=== PATIENT | male | born 1965 | race African-American/Black ===

== ENCOUNTER 2017-05-14 05:48 | Inpatient (IN) | payer OTHER ==
[~2017-05-14] VITALS: Ht 190.5 cm; Wt 90.7 kg
[2017-05-14] VITALS (18 sets, daily range): BP systolic 121–149; BP diastolic 72–97
[2017-05-14] MEDS ORDERED: ceFAZolin sod 2 GM in D5W 110 ML IVPB ONE (07:00)
[2017-05-14] MEDS ORDERED: NKM (07:06)
[2017-05-14] MEDS ORDERED: Bacitracin Oint 15gm Tube TOPIC ONE (07:07)
[2017-05-14] MEDS ORDERED: Thrombin 5000 units TOPIC ONE (07:07)
[2017-05-14] MEDS ORDERED: Gelfoam Absorbable 1gm powder pkt TOPIC ONE ×2 (07:08→11:06)
[2017-05-14] MEDS ORDERED: Bupivacaine 0.5% Inj 30 ml vial INJ ONE (07:08)
[2017-05-14] MEDS ORDERED: Thrombin 5000 units spray kit TOPIC ONE ×2 (07:08→11:05)
[2017-05-14] MEDS ORDERED: Vancomycin 1gm inj IVPB ONE (07:08)
[2017-05-14] MEDS ORDERED: Bacitracin 50000 Units Vial ONE (07:09)
--- NOTE | 2017-05-14 08:43 | Pre-Procedure Note/Attestation ---
Pre-Procedure Note/Attestation Complete Prior to Procedure Procedure Narrative: c2-7 laminectomy Indications for Procedure Pre-Operative Diagnosis: c2-7 stenosis with myelopathy Attestation I attest that I discussed the nature of the procedure; its benefits; risks and complications; and alternatives (and the risks and benefits of such alternatives ), prior to the procedure, with the patient (or the patient's legal sales representative girls' apparel). I attest that, if there was a reasonable possibility of needing a blood transfusion, the patient (or the patient's legal sales representative girls' apparel) was given the [facility] standardized written summary, pursuant to the Ivan Adwoa Blood Safety Act ([place] Health and Safety Code # 1645, as amended). I attest that I re-evaluated the patient just prior to the surgery and that there has been no change in the patient's H&P, except as documented below: JOHN EDUARDO May 14, 2017 08:43
[2017-05-14] MEDS ORDERED: Zemuron 50mg/5ml Inj IV ONE (08:45)
[2017-05-14] MEDS ORDERED: fentaNYL 100 mcg/2 mL IV ONE (08:45)
[2017-05-14] MEDS ORDERED: Milk of Magnesia 30ml Ud ORAL PRN (08:45)
[2017-05-14] MEDS ORDERED: NS Irrig 1000ml ONE (08:45)
[2017-05-14] MEDS ORDERED: Metoclopramide 10mg/2ml Inj IVP PRN (08:45)
[2017-05-14] MEDS ORDERED: Lidocaine 1% MPF 10mg/ml 5ml ONE (08:45)
[2017-05-14] MEDS ORDERED: LR 1000ml ONE (08:45)
[2017-05-14] MEDS ORDERED: Naloxone 0.4mg/ml Inj ONE (08:45)
[2017-05-14] MEDS ORDERED: Midazolam 2mg/2ml Inj ONE (08:45)
[2017-05-14] MEDS ORDERED: Sodium Chloride 10ml vial INJ ONE (08:45)
[2017-05-14] MEDS ORDERED: Dexamethasone 4mg/ml vial ONE (08:45)
[2017-05-14] MEDS ORDERED: Sterile Water Irrig 1000ml IRRIG ONE (08:45)
[2017-05-14] MEDS ORDERED: Propofol 1,000mg/ 100ml btl IV ONE (08:45)
--- NOTE | 2017-05-14 08:45 | Brief Operative Note ---
Immediate Post Operative Note Operative Note Pre-op Diagnosis: c2-7 stenosis with myelopathy Procedure: c3-7 laminectomy, partial inf pole c2 laminectomy Post-op Diagnosis: same as pre-op Findings: consistent w/pre-op dx studies Surgeon: pj Software Installer: winifred keys Anesthesiologist: rajendra Anesthesia: general Specimen: none Complications: none Condition: stable Fluids: 2L Estimated Blood Loss: volume - 150 Drains: hemovac Implant(s) used?: JOHN Garcia May 14, 2017 08:45
[2017-05-14] MEDS ORDERED: Lidocaine 1% 10mg/ml/Epi 0.005mg/ml 30ml vial INJ ONE (10:03)
[2017-05-14] MEDS ORDERED: LR 1000ml 1,000 ML IVLG SCH (10:39)
[2017-05-14] MEDS ORDERED: LR 1000ml 1,000 ML IV SCH (10:45)
[2017-05-14] MEDS ORDERED: DiphenhydrAMINE 50mg/ml Inj IVP PRN (10:45)
[2017-05-14] MEDS ORDERED: Hydromorphone 0.5mg/0.5ml inj IVP PRN (10:45)
[2017-05-14] MEDS ORDERED: LORazepam Inj 2mg/ml 1ml IV PRN (10:45)
[2017-05-14] MEDS ORDERED: Meperidine 50mg/ml Inj(FOR RIGORS ONLY) IVP ONE (10:45)
--- NOTE | 2017-05-14 10:46 | Anethesia Preoperative Eval ---
Anesthesia Pre-op PMH/ROS General Date of Evaluation: May 14, 2017 Time of Evaluation: 08:20 Anesthesiologist: Rosamaria ASA Score: ASA 2 Mallampati Score Class I : Soft palate, uvula, fauces, pillars visible Class II: Soft palate, uvula, fauces visible Class III: Soft palate, base of uvula visible Class IV: Only hard plate visible Mallampati Classification: Class II Surgeon: Patrizia Diagnosis: Cervical spinal stenosis Surgical Procedure: Cervical laminectomy and decompression C3-C7 Social History: smoking - Former, alcohol use - Former Family History: no anesthesia problems Allergies: Coded Allergies: No Known Allergies (Unverified , 05/13/17) Medications: see eMAR Past Medical History Cardiovascular: Reports: HTN, Denies: CAD, [place], valve dz, arrhythmia, other Pulmonary: Denies: asthma, COPD, ODILIA, other Gastrointestinal/Genitourinary: Denies: GERD, CRI, ESRD, other Neurologic/Psychiatric: Denies: dementia, CVA, depression/anxiety, TIA, other Endocrine: Denies: DM, hypothyroidism, steroids, other HEENT: Denies: cataract (L), cataract (R), glaucoma, [place] (L), [place] (R), other Hematology/Immune: Reports: DVT - PE Musculoskeletal/Integumentary: Denies: OA, RA, DJD, DDD, edema, other PMH Narrative: HTN (border line, not currently on meds), PE in 2014 PSxH Narrative: Left shoulder surgery Anesthesia Pre-op Phys. Exam Physician Exam Last Vital Signs Date Time Temp Pulse Resp B/P (MAP) Pulse Ox O2 Delivery O2 Flow Rate FiO2 05/14/17 06:39 98.1 69 18 127/84 99 Room Air Constitutional: NAD Neurologic: CN 2-12 intact Cardiovascular: RRR, no M/R/G Respiratory: CTA Gastrointestinal: S/NT/ND Airway Exam Mallampati Score: Class II MO: full ROM: full Teeth: intact Anesthesia Pre-op A/P Labs WNL Studies Pre-op Studies: EKG - NSR Risk Assessment & Plan Assessment: Borderline hypertensive male with h/0 PE in 2014 Plan: GETA, SedLine monitor Status Change Before Surgery: No Pre-Antibiotics Drug: Ancef Given Within 1 Hr of Incision: Yes Time Given: 09:00 MELISSA PASTOR M.D. May 14, 2017 10:46
--- NOTE | 2017-05-14 10:48 | Immediate Post-Op Evaluation ---
Immediate Post-Op Evalulation Immediate Post-Op Evalulation Procedure: Cervical laminectomy and decompression C3-C7 Date of Evaluation: May 14, 2017 Time of Evaluation: 12:40 IV Fluids: 2000 Estimated Blood Loss: 150 Urinary Output: 100 Blood Pressure Systolic: 141 Blood Pressure Diastolic: 93 Pulse Rate: 94 Respiratory Rate: 13 O2 Sat by Pulse Oximetry: 100 Temperature (Fahrenheit): 97.7 Pain Score (1-10): 0 Nausea: No Vomiting: No Complications No complication Patient Status: reacts, patent, extubated, none Hydration Status: adequate Drug: Ancef Given Within 1 Hr of Incision: Yes Time Given: 09:00 MELISSA PASTOR M.D. May 14, 2017 10:47
[2017-05-14] MEDS ORDERED: Dronabinol 2.5mg Cap ORAL SCH ×2 (14:00)
[2017-05-14] MEDS: PCA HYDROmorphone 30mg/30ml Syr IV PRN (14:25)
[2017-05-14] MEDS ORDERED: Rate Change PCA 1 Each MISC PRN (14:30)
[2017-05-14] MEDS ORDERED: HYDROmorphone 1mg/ml Carpuject SUBQ PRN (14:30)
[2017-05-14] MEDS ORDERED: Naloxone 0.4mg/ml Inj IVP PRN (15:45)
[2017-05-14] MEDS ORDERED: PCA Education Pamphlet MISC ONE (16:00)
--- NOTE | 2017-05-14 16:00 | Operative Note - Dictated ---
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 OPERATION PERFORMED: 1. Inferior hemilaminectomy bilaterally, C2. 2. Complete laminectomy, C3. 3. Complete laminectomy, C4. 4. Complete laminectomy, C5. 5. Complete laminectomy, C6. 6. Superior one-half laminectomy, C7. 7. Use of operating microscope. 8. Neurodiagnostic monitoring. 9. Use of fluoroscopy for localization purposes. ESTIMATED BLOOD LOSS: 150 mL. COMPLICATIONS: None. FLUIDS: 2000 mL. SURGEON: Dao Acharya M.D. MUSIC LEADER: Umer Barroso PA-C. ANESTHESIOLOGIST: Dr. Blank. ANESTHESIA TYPE: General endotracheal anesthesia. INDICATIONS: The patient is a very pleasant gentleman with severe spondylitic myelopathy with weakness in both upper and lower extremities as well as balance change. Surgical intervention was recommended due to the notable clinical findings, MRI findings, and already evidence of cord signal change. The patient elected to undergo decompression. I did discuss with him the option of multilevel fusion, however, due to the fact that the patient already had fairly advanced discogenic collapse as well as fairly significant spondylosis and a normal lordosis, a laminectomy was deemed to be appropriate in this situation. RISK NOTE: The patient was explained detail risks and benefits of surgery to include but not be limited to those of bleeding, infection, damage to nerves or vessels or tendons, anesthetic risk, allergic reaction, aspiration, and possibly . The patient understood and wished to proceed. OPERATIVE PROCEDURE IN DETAIL: The patient was taken to the operative suite. After general endotracheal anesthesia was obtained, Begum catheter was placed. Baseline neurodiagnostic monitoring was performed demonstrating significant diminution of neural function in the upper and lower extremities. At this point, Edmondson pins were inserted under sterile fashion. The patient was turned prone onto a radiolucent table and the Edmondson was firmly attached to the table. All bony prominences were well padded. The back of the neck was then prepped and draped in usual sterile fashion. Midline incision was carried out from C2 through T1. Subperiosteal dissection was carried out bilaterally. Fluoroscopically, the levels were then localized. At this point, an entry portal was made at C6, top of C7, to apply the B1 footplate, however, after having put this into place and noting the size, I was concerned that there was such severe stenosis that this would potentially cause further cord damage. For that reason, a [id number] laminectomy was elected to be performed. At this point, a trough was drilled out on the left side bicortically from C6, C5, C4, C3, and the inferior portion of C2. This was then repeated on the contralateral side. The interspinous ligament between C2-C3 and C6-C7 was then amputated with Bovie and large pokers were placed onto the spinous processes, which allowed for elevation of the lamina. All attachments of the flavum were then cut back. At this point, bilateral hemilaminectomy of the superior portion of C7 was performed until no further cord compression was noted. This was performed using standard technique by drilling and thinning the lamina and applying a #2 or #3 Kerrison rongeur. This was then repeated at C2. Please note that C2 was far more compressed with a significant buckling phenomenon of the ligamentum flavum which was removed in its entirety. Once satisfied with cord decompression from the bottom one-half of C2 all the way to the top half of C7, decision was made to close. Meticulous hemostasis was performed. Copious irrigation was performed. FloSeal was applied. The patient did receive 500 mg of vancomycin powder placed deep to the fascia plus an additional 500 mg suprafascially. The fascia was repaired using #1 Vicryl, subcutaneous closure using 2-0 Vicryl and running 4-0 PDS. Dermabond was applied. Sterile dressing was applied. At this time, the patient was turned onto his back. Edmondson pins were removed and we were awaiting extubation. Dao Acharya M.D. DR: Ghanshyam JOB#: [id number] CC: ASTER
[2017-05-14] MEDS: D5 1/2NS 1,000 ML IV SCH (16:48)
[2017-05-14] MEDS: ceFAZolin sod 1 GM in D5W 55 ML IV SCH (16:49)
[2017-05-14] MEDS: Docusate 100mg cap ORAL SCH (18:43)
[2017-05-14] MEDS: Pericolace tab ORAL SCH (18:43)
[2017-05-14] MEDS: PCA shift volume MISC SCH (19:10)
[2017-05-14] MEDS: Dronabinol 2.5mg Cap ORAL SCH (20:38)
[2017-05-15 00:13] VITALS: BP 117/73
[2017-05-15] MEDS: oxyCODONE 5mg IR tab ORAL PRN (00:24)
[2017-05-15] MEDS: D5 1/2NS 1,000 ML IV SCH ×3 (00:25→20:40)
[2017-05-15] MEDS: ceFAZolin sod 1 GM in D5W 55 ML IV SCH ×2 (00:25→08:59)
--- NOTE | 2017-05-15 00:30 | Consultation ---
DATE OF CONSULTATION: 05/14/2017 ACUTE PAIN CONSULT CONSULTING PHYSICIAN: Fernando Chapin M.D. REFERRING PHYSICIAN: Dao Acharya M.D. HISTORY OF PRESENT ILLNESS: Dr. Dao Acharya, Thank you kindly for consulting me to evaluate and render an opinion as to how to proceed in the management of the patient's acute postoperative multiple level posterior cervical spine surgery pain. The patient is a 52-year-old gentleman, who injured his cervical spine in a work-related injury. Today, he underwent multiple level posterior cervical spine surgery and he consulted me to help with this patient's pain control postoperatively. He complained of significant discomfort after the multilevel surgery. I saw the patient at the bedside. I discussed the case with the day nurse, Torri TITUS on the orthopedic floor and also with the recovery room nurse. I discussed the case with yourself, Dr. Acharya, and devised the following analgesic plan. I spent over 75 minutes in consultation with an additional 30 minutes in medical record review. I reviewed multiple records from today, date of surgery at [facility], 05/14/2017 including consent for surgical treatment, consent for anesthesia, consent for blood products, medication administration record, medication reconciliation order form, HOT CAR CHARGER order sheet, HOT CAR CHARGER analgesia flow sheet, PACU records, PACU orders, intraoperative anesthesia record, pre and post-anesthesia evaluation record, postoperative spine surgical orders, and postoperative surgery report by Dr. Acharya. Surgical invasive procedure check list, preoperative nurse plan of care, guidelines for prophylactic antibiotics, guidelines for DVT prophylaxis. Further record review includes utilization review and surgical authorization by [facility] April 2017 authorizing surgery as certified. The record review included preoperative History and Physical by Inderjit Gibbs M.D. of 05/01/2017 along with diagnostic testing. PAST MEDICAL HISTORY: 1. Acute postoperative cervical spine pain, status post multiple level posterior cervical spine surgery by Dr. Dao Acharya in May 2017. 2. Work-related injury. 3. Active marijuana usage. 4. History of pulmonary embolism in November 2013. PAST SURGICAL HISTORY: Left shoulder surgery in 2014. REVIEW OF SYSTEMS: Per Dr. Gibbs. MEDICATIONS AT HOME: None. ALLERGIES: No known drug allergies. SOCIAL HISTORY: The patient lives at home with his and daughter in [place], [place]. The patient admits to using marijuana at least every other day. The patient quit alcohol usage 5 years ago. PHYSICAL EXAMINATION: VITAL SIGNS: Age 52, height 6 feet 3 inches, weight 197 pounds, body mass index 25. Afebrile, blood pressure 134/84, pulse 81, respirations 19, and oxygen saturation 96% on room air. HEENT: Normocephalic and atraumatic. Extraocular muscles are intact. Pupils are equal, round, and accommodative. NECK: Posterior dressing clean and dry with Hemovac drain holding suction. Significant pain with range of motion. CHEST: Clear to auscultation. HEART: Regular rate and rhythm. ABDOMEN: Soft. GENITOURINARY: Deferred. The patient is voiding urine well after Begum catheter was discontinued earlier. EXTREMITIES: Moving all extremities x4. Grossly movement of all extremities is within normal limits. NEUROLOGIC: Detailed neurologic exam per Dr. Acharya. DIAGNOSTIC TESTING: Shows a 12-lead EKG, normal sinus rhythm in April 2017. LABORATORY STUDIES: From 05/08/2017 show glucose 99, BUN 15, creatinine 1.2, sodium 141, potassium 4.0, chloride 108, bicarbonate 22, calcium 7.2, total protein 7.6, albumin 4.9, total bilirubin 0.8, alkaline phosphatase 62, AST 17, and ALT 23. PTT 28 and INR 1.0. White count is 5, hematocrit 48, and platelets 135,000. Urinalysis is negative. IMPRESSION: 1. Acute postoperative cervical spine pain, status post multiple level posterior cervical spine surgery by Dr. Dao Acharya in May 2017. 2. Work-related injury. 3. Active marijuana usage. 4. History of pulmonary embolism in November 2013. TREATMENT AND RECOMMENDATIONS: I spoke with the hospital pharmacist and devised the following analgesic plan. I started the patient on Dilaudid HOT CAR CHARGER with 0.2 mg demand dose at 10-minute lockout and 4 mg 4-hour limit. There will be no underlying basal rate or continuous rate to reduce the risk of complications. The patient does use marijuana frequently. I have placed him on q.12 h. dosing of Marinol 2.5 mg at 9 a.m. and 9 p.m. I believe this should hopefully reduce his opioid requirements and make it easier to wean him off of the HOT CAR CHARGER unit. I have added a breakthrough dose of Dilaudid 1 mg subcutaneously every three hours p.r.n. for severe breakthrough pain. I have ordered oxycodone instant release 10 mg every three hours p.r.n. for moderate breakthrough pain. The patient believes he has tolerated oxycodone in the past without any adverse side effects. I have empirically placed the patient on Protonix 40 mg nightly for GI ulcer prophylaxis and I have also added p.r.n. dose of Maalox 30 mL q.6 h. in case of any GERD symptom exacerbation. I have ordered Zofran 4 mg intravenously every 4 hours in case of any nausea symptoms. I have ordered Benadryl 25 mg orally q.6 h. in case of any itching complaints. The patient has been placed on Colace mg b.i.d. as a stool softener to help with bowel regularity. I have also ordered p.r.n. dose of milk of magnesia 30 mL q.6 h. daily in case of any constipation issues. With the patient's smoking history, I have ordered incentive spirometer to encourage good pulmonary toilet. The patient has a history of pulmonary embolism in the past. He will be maintained on sequential compression and pneumatic devices at all times when in bed. Fernando Chapin M.D. DR: Renetta JOB#: [id number] CC: ASTER
[2017-05-15 04:30] VITALS: BP 110/68
[2017-05-15] MEDS: PCA shift volume MISC SCH ×2 (07:04→19:07)
[2017-05-15 08:00] VITALS: BP 124/81
[2017-05-15] MEDS: Docusate 100mg cap ORAL SCH ×2 (08:58→17:04)
[2017-05-15] MEDS: Pericolace tab ORAL SCH ×2 (08:58→17:04)
[2017-05-15] MEDS: Dronabinol 2.5mg Cap ORAL SCH ×2 (08:58→20:39)
--- NOTE | 2017-05-15 10:36 | 48 Hour Post Anesthesia Eval ---
Post Anesthesia Evaluation Procedure: Cervical laminectomy and decompression C3-C7 Date of Evaluation: May 15, 2017 Time of Evaluation: 06:30 Blood Pressure Systolic: 110 0: 68 Pulse Rate: 64 Respiratory Rate: 18 Temperature (Fahrenheit): 97.9 O2 Sat by Pulse Oximetry: 98 Airway: patent Nausea: No Vomiting: No Pain Intensity: 2 Hydration Status: adequate Cardiopulmonary Status: at baseline Mental Status/LOC: patient returned to baseline Post-Anesthesia Complications: 0 Follow-up care needed: N/A - further care as per primary team LOU LOWRY M.D. May 15, 2017 10:36
[2017-05-15 12:00] VITALS: BP 114/74
--- NOTE | 2017-05-15 15:47 | Orthopedic Spine Progress Note ---
Ortho Spine - Progress Note Subjective Symptoms: c/o post-op neck pain, improved - as compared to pre-op in lower extremities, but upper extremities unchanged Objective Vital Signs: Last 24 Hour Vital Signs Date Time Temp Pulse Resp B/P (MAP) Pulse Ox O2 Delivery O2 Flow Rate FiO2 05/15/17 12:30 18 05/15/17 12:00 98.1 78 19 114/74 98 05/15/17 10:36 64 18 98 05/15/17 08:30 19 05/15/17 08:00 98.4 70 18 124/81 99 05/15/17 04:30 97.9 64 18 110/68 98 05/15/17 04:04 18 05/15/17 00:13 98.1 75 18 117/73 96 05/15/17 00:00 18 05/14/17 20:30 18 05/14/17 20:29 97.8 81 19 134/84 96 05/14/17 19:25 100 Room Air 05/14/17 16:30 98.9 80 18 128/81 100 Nasal Cannula 3.0 05/14/17 16:30 16 05/14/17 16:00 16 I&O: Intake and Output 05/15/17 05/16/17 19:00 07:00 Intake Total 600 ml Output Total 950 ml Balance -350 ml Intake Oral 600 ml Output Urine Total 950 ml # Voids 4 Wound: clean, intact Drains: hemovac Neuro Status: unchanged from pre-op Assessment Procedure Performed: c3-7 laminectomy, partial inf pole c2 laminectomy Plan Plan: PT, pain management, d/c drain, discharge plan - in am? JOHN EDUARDO May 15, 2017 15:47
[2017-05-15 16:03] VITALS: BP 118/79
[2017-05-15] MEDS: PCA HYDROmorphone 30mg/30ml Syr IV PRN (17:14)
[2017-05-15 20:44] VITALS: BP 115/76
[2017-05-16 00:45] VITALS: BP 120/70
[2017-05-16] MEDS: Hydromorphone 0.5mg/0.5ml inj SUBQ PRN ×2 (02:58→12:44)
[2017-05-16] MEDS: Dronabinol 2.5mg Cap ORAL SCH (08:25)
[2017-05-16] MEDS: Docusate 100mg cap ORAL SCH ×2 (08:26→17:32)
[2017-05-16] MEDS: Pericolace tab ORAL SCH ×2 (08:26→17:32)
[2017-05-16] MEDS: oxyCODONE 5mg IR tab ORAL PRN ×2 (11:47→17:31)
[2017-05-16] MEDS ORDERED: Norco 5mg/325mg tab ORAL PRN (14:30)
[2017-05-16] MEDS ORDERED: traMADol 50mg tab ORAL PRN (14:30)
[2017-05-16] MEDS ORDERED: Norco 7.5mg/325mg tab ORAL PRN ×2 (14:30)
[2017-05-16] MEDS ORDERED: Hydromorphone 0.5mg/0.5ml inj SUBQ PRN (14:30)
--- NOTE | 2017-05-16 15:15 | Progress Note ---
DATE: 05/16/2017 ACUTE PAIN MANAGEMENT PHYSICIAN PROGRESS NOTE OBJECTIVE: VITAL SIGNS: Afebrile, pulse 70, respirations 18, blood pressure 120/70, and oxygen saturation 97% on room air. LABORATORY STUDIES: No interval laboratory studies. MEDICATIONS: Medication administration record reviewed. Medications include Colace, Suri-Colace, Protonix, and Marinol. P.r.n. medications include Tylenol, milk of magnesia, Dilaudid, Benadryl, oxycodone, and Zofran. I saw the patient at the bedside. I discussed the case with the nurse, Carmen. I discussed the case with the surgeon, Dr. Acharya. Yesterday, Dr. Acharya removed the indwelling cervical spine drain catheter. Today, the neck dressing appears clean and dry. The patient has been ambulating with physical therapy. The patient does state that he has chronic back pain and has requested a front wheel walker for home usage. I have placed the patient on [id number] Marinol for baseline analgesia. He has been tolerating this medication without any oversedation. He denies any shortness of breath or chest pain. The patient has been able to tolerate advancing diet without difficulties. The patient is passing positive flatus, but has not yet had a bowel movement. The patient will use the home remedies such as castor oil when he gets home to help with constipation issues. I did leave a prescription for Percocet for outpatient usage. I stopped the SENIOR CYBER SECURITY ANALYST earlier this morning, the patient has been tolerating his pain on the scheduled Marinol along with breakthrough doses of oxycodone. With normal vital signs and improved clinical condition, I agree with discharge trial home with the patient's later today. The will assist with activities of daily living. The patient will follow up with Dr. Acharya in the outpatient surgical clinic for surgical followup. Fernando Chapin M.D. DR: UMBERTO JOB#: [id number] CC:
[2017-05-16 16:00] VITALS: BP 123/84
[2017-05-16] MEDS ORDERED: Tubing IV Secondary IV ONE (16:20)
[2017-05-16] MEDS ORDERED: D5 1/2NS 1000ml IV ONE (16:20)
[2017-05-16] MEDS ORDERED: PERCOCET 10-321 EAC1 PO (19:14)
[2017-05-16] MEDS ORDERED: PERCOCET 10-321 EACH ORAL (19:18)
[2017-05-16] MEDS ORDERED: CANE1 EACH MC (19:20)
--- NOTE | 2017-05-17 10:04 | Diagnostic Imaging Report ---
Comparison: None Operating surgeon: JOHN EDUARDO Total fluoroscopy time: 21.9 seconds Fluoroscopy dose: 1.41 mGy Findings: 2 fluoroscopic image from surgical procedure submitted for archival to PACS. Images of the cervical spine. An endotracheal tube is in place. No gross fractures is identified. Second image demonstrates surgical wires and instruments projecting over the posterior cervical spine. Impression: Fluoroscopic images from surgical procedure. Please see operative report.
--- NOTE | 2017-05-17 10:21 | Discharge Summary ---
Discharge Summary Hospital Course Date of Admission May 14, 2017 at 05:48 Date of Discharge May 16, 2017 at 20:15 Admitting Diagnosis HPI Alexis Burt Gil Jr is a 52 year old male who was admitted on May 14, 2017 at 05: 48 for Spinal Stenosis Hospital Course [id number] Discharge Discharge Disposition Patient was discharged to Home (01) Discharge Diagnoses: Cornelia Tinsley NP May 17, 2017 10:21
--- NOTE | 2017-05-17 23:15 | Discharge Summary 2 SIG ---
DATE OF ADMISSION: 05/14/2017 DATE OF DISCHARGE: 05/16/2017 CONSULTANTS: Fernando Chapin M.D. BRIEF HOSPITAL COURSE: The patient is a 52-year-old male, who is under worker's compensation case. 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 Since then, he has been experiencing ongoing pain with numbness going across his shoulders down his hands. He was admitted on 05/14/2017, and underwent inferior hemilaminectomy bilaterally on C2 and complete laminectomy on C3, C4, C5, C6, and superior one-half laminectomy on C7 by Dr. Acharya. Postoperatively, he was admitted to medical floor and was given pain management. He was followed by Dr. Chapin. He was placed on CADDY MASTER Dilaudid and was given Marinol 2.5 mg b.i.d. He was given Protonix for GI ulcer prophylaxis and Maalox for GERD exacerbation. He was given bowel regimen, Colace and Suri-Colace. He underwent physical therapy. Indwelling cervical spine catheter was removed. Neck dressings appeared clean and dry. He has been ambulating with physical therapy and has good pain control. He was passing flatus and tolerating postop cervical diet. He was eventually discharged home to follow up with Dr. Acharya as an outpatient. FINAL DIAGNOSES: 1. 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 Please refer to operative report. DISPOSITION: The patient was discharged home. DISCHARGE MEDICATIONS: Continue with Percocet p.r.n. pain. Dao Acharya M.D. I have been assigned to dictate discharge summary on this account and I was not involved in the patient's management. Cornelia Tinsley N.P. DR: Jet JOB#: [id number] CC: ASTER
== END 2017-05-16 20:15 | disposition home or self-care (01) | DRG 520 ==
LOC: SDSOVERFLO 05:48 → 3E 15:00
PROC: 00NW0ZZ Release Cervical Spinal Cord, Open Approach (ICD-10-PCS; principal; 2017-05-14 08:30)
DX: M47.12 Other spondylosis with myelopathy, cervical region (principal); Z86.711 Personal history of pulmonary embolism; M48.02 Spinal stenosis, cervical region; X58.XXXS Exposure to other specified factors, sequela
CPT/HCPCS: 36415; 72040; 76001; 86850; 86900; 86901; 87081; 94003; 94150; C9399; J2250; J2405